=== PATIENT | female | born 1960 ===

== ENCOUNTER 2016-10-26 07:01 | Day surgery (SDC) | payer MEDICAID ==
[2016-10-26 07:40] VITALS: BMI 27.4
[2016-10-26 07:55] VITALS: O2SAT 100
[2016-10-26] MEDS ORDERED: Lactated Ringer's 500 ML IV ONE (08:48)
[2016-10-26] MEDS ORDERED: Propofol 10 mg/ml Inj (20 ML) ONE (08:49)
[2016-10-26 09:48] VITALS: RESP 22
[2016-10-26 10:48] VITALS: BP 130/77; PULSE 86; TEMP 97.2
== END 2016-10-26 09:55 | disposition home or self-care (01) ==
LOC: C.ENDO 07:01
PROVIDERS: ATTEND Internal Medicine Gastroenterology
DX: Z12.11 Encounter for screening for malignant neoplasm of colon (principal); K64.4 Residual hemorrhoidal skin tags; K64.8 Other hemorrhoids
CPT/HCPCS: 45378; J2704; J7120